=== PATIENT | female | born 1965 | race Two or more races ===

== ENCOUNTER 2017-06-23 11:26 | Emergency (ER) | payer OTHER ==
[2017-06-23] MEDS ORDERED: ASPIRIN CHEW 81 MG TABLET PO STA (11:55)
[2017-06-23] MEDS ORDERED: cloNIDine 0.1 MG TABLET PO STA (11:55)
[2017-06-23] MEDS ORDERED: cloNIDine 0.1 MG TABLET ONE (12:05)
[2017-06-23] MEDS ORDERED: ASPIRIN CHEW 81 MG TABLET ONE (12:06)
[2017-06-23 12:08] LABS: BASOPHILS % (AUTO) 0.2 %; EOSINOPHILS % (AUTO) 0.1 %; HCT - HEMATOCRIT 39.9 % (37.0-47.0); HGB - HEMOGLOBIN 13.7 g/dL (12.0-16.0); LYMPHOCYTES # (AUTO) 1.5 10^3/uL (1.5-3.5); LYMPHOCYTES % (AUTO) 12.6 %; MEAN CORPUSCULAR HEMOGLOBIN 29.4 pg (27.0-31.0); MEAN CORPUSCULAR HGB CONC 34.3 g/dL (32.0-36.0); MEAN CORPUSCULAR VOLUME 85.6 fL (81.0-99.0); MONOCYTES # (AUTO) 0.6 10^3/uL (0.0-1.0); MONOCYTES % (AUTO) 4.8 %; NEUTROPHILS # (AUTO) 9.7 10^3/uL (1.5-6.6); NEUTROPHILS % (AUTO) 82.3 %; NUCLEATED RED BLOOD CELLS AUTO 0.1 /100WBC; RED BLOOD COUNT 4.66 10^6/uL (4.20-5.40); RED CELL DISTRIBUTION WIDTH 13.6 % (12.0-15.0); UNCORRECTED WHITE BLOOD COUNT 11.8 x10^3/uL; WHITE BLOOD COUNT 11.8 x10^3/uL (4.8-10.8)
[2017-06-23 12:13] LABS: CALCIUM 8.9 mg/dL (8.5-10.3); POTASSIUM 2.8 mmol/L (3.5-5.0)
[2017-06-23 12:18] LABS: INR 1.1 (0.8-1.2); PT - PROTHROMBIN TIME 12.9 secs (9.9-12.6)
[2017-06-23] MEDS ORDERED: IOPAMIDOL-300 100 ML VIAL ONE (12:23)
[2017-06-23 12:25] LABS: PARTIAL THROMBOPLASTIN TIME 25.7 secs (24.9-33.3)
--- NOTE | 2017-06-23 12:37 | XRAY Preliminary Report ---
Exam: XR CHEST 2 VIEW PA/LAT IMPRESSION: Technically suboptimal examination. No radiographically apparent acute abnormality in the chest. [facility] SITE ID: [id number]
--- NOTE | 2017-06-23 12:40 | XRAY Report ---
EXAM: CHEST RADIOGRAPHY EXAM DATE: 06/23/2017 12:29 PM. CLINICAL HISTORY: Tachycardia and short of breath . COMPARISON: None. TECHNIQUE: 2 views. FINDINGS: Lungs/Pleura: Technically suboptimal examination secondary to underpenetration and grid artifact on t he frontal view. No focal consolidation is evident. No large pneumothorax or pleural effusion. Mediastinum: Moderate enlargement of the cardiac silhouette. Possible thickening of the right paratra cheal stripe. Other: None. IMPRESSION: Technically suboptimal examination. No radiographically apparent acute abnormality in the chest. [facility] Referring Provider Line: [phone] SITE ID: [id number]
--- NOTE | 2017-06-23 13:05 | CT Preliminary Report ---
Exam: CT CHEST ANGIO (PE) IMPRESSION: 1. No evidence for pulmonary thromboemboli bilaterally. 2. Lower lung predominant hazy groundglass opacities likely reflect compressive atelectasis. No other airspace consolidation. 3. No pleural effusions. 4. No thoracic lymphadenopathy. [facility] SITE ID: [id number]
--- NOTE | 2017-06-23 13:08 | CT Report ---
EXAM: CT ANGIOGRAM CHEST EXAM DATE: 06/23/2017 12:31 PM. CLINICAL HISTORY: Tachy and SOB. COMPARISON: None. TECHNIQUE: Routine helical imaging was performed through the chest in the pulmonary arterial phase. I V Contrast: 80 cc [id number]. Reconstructions: Coronal 3-D MIP reconstructions.Sagittal and coronal. In accordance with CT protocol optimization, one or more of the following dose reduction techniques w ere utilized for this exam: automated exposure control, adjustment of mA and/or KV based on patient s ize, or use of iterative reconstructive technique. FINDINGS: Pulmonary Arteries: Diagnostic quality: Adequate through the segmental arteries. No evidence for acute or chronic pulmona ry emboli. RV/LV is within normal limits. There is no interventricular septal bowing. There is no reflux of cont rast material in the IVC. Lungs/Pleura: Hazy lower lung prominent groundglass opacities could reflect compressive atelectasis. No other focal consolidation. No evidence of pleural effusions or pneumothorax. Mediastinum: 7 mm right thyroid nodule. No enlarged mediastinal or hilar lymph nodes are seen. Normal heart size. Trace pericardial fluid. Thoracic Aorta: Unremarkable. Upper Abdomen: Hepatic steatosis evident. Other: None. IMPRESSION: 1. No evidence for pulmonary thromboemboli bilaterally. 2. Lower lung predominant hazy groundglass opacities likely reflect compressive atelectasis. No other airspace consolidation. 3. No pleural effusions. 4. No thoracic lymphadenopathy. [facility] Referring Provider Line: [phone] SITE ID: [id number]
[2017-06-23] MEDS ORDERED: IOPAMIDOL-300 100 ML VIAL IVP ONE (13:26)
[2017-06-23 13:39] LABS: BILIRUBIN,URINE NEGATIVE (NEGATIVE)
[2017-06-23 13:40] LABS: UA w/ MICROSCOPIC CHARGE YES
[2017-06-23 13:46] LABS: UR CULTURE IF IND NOT INDICATED; WBC,URINE 0-3 /HPF (0-5)
--- NOTE | 2017-06-23 16:22 | ED Physician Documentation ---
History of Present Illness - Stated complaint Stated Complaint: WEAKNESS - Chief complaint Chief Complaint: Neuro - History obtained from History obtained from: Patient (pt states that she woke up this AM and said that she could not get out of bed. she states that when she did she could not stand and fell down on her bottom. She states that she then was able to stand and went into the bathroom when she had the symptoms again and sat down. She then improved. she states that she was able to drive to her providers office and was able to walk in but was not seen there. She then drove to the ER and as she was standing on the curb by her car she slipped and fell and could not get up. some others had to help her up. at the time of my eval she reported no symptoms. pt also reports that hs is not short of breath and has "white coat syndrome" and has been told that her heart rate is always elevated.) Review of Systems Constitutional: denies: Fever, Chills Cardiac: denies: Chest pain / pressure, Palpitations Respiratory: denies: Dyspnea, Cough, Hemoptysis GI: denies: Abdominal Pain, Nausea, Vomiting, Constipation, Diarrhea : denies: Dysuria, Frequency Skin: denies: Rash, Lesions Musculoskeletal: denies: Neck pain, Back pain, Extremity pain, Joint swelling, Pain with weight bearing Neurologic: reports: Generalized weakness. denies: Difficulty speaking, Near syncope, Syncope, Confused, Altered mental status, Headache, Head injury, LOC PD PAST MEDICAL HISTORY - Past Medical History Past Medical History: No - Past Surgical History Past Surgical History: No - Present Medications Home Medications: Ambulatory Orders Medication Instructions Recorded Confirmed Lisinopril 10 mg PO DAILY #30 tablet 06/23/17 - Allergies Allergies/Adverse Reactions: Allergies Allergy/AdvReac Type Severity Reaction Status Date / Time No Known Drug Allergies Allergy Verified 06/23/17 11:36 - Social History Does the pt smoke?: No Smoking Status: Never smoker Does the pt drink ETOH?: Yes ETOH Use: Wine Does the pt have substance abuse?: No - POLST Patient has POLST: No PD ED PE NORMAL - Vitals Vital signs reviewed: Yes - General General: Alert and oriented X 3, No acute distress, Well developed/nourished - HEENT HEENT: Atraumatic, Moist mucous membranes - Cardiac Cardiac: RRR, No murmur - Respiratory Respiratory: No respiratory distress, Clear bilaterally - Abdomen Abdomen: Normal bowel sounds, Soft, Non tender, Non distended - Back Back: No CVA TTP - Derm Derm: Normal color, Warm and dry, No rash - Extremities Extremities: No deformity, No tenderness to palpate, No edema - Neuro Neuro: Alert and oriented X 3, 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 No: Confused, Disoriented , Weakness, Abnormal sensation, Nystagmus, Aphasia, Dysarthria Results - Vitals Vitals: Vital Signs - 24 hr 06/23/17 06/23/17 06/23/17 11:32 11:45 12:00 Temperature 37.2 C Heart Rate 130 H 108 H 111 H Respiratory 24 20 20 Rate Blood Pressure 263/118 H 259/120 H 229/108 H O2 Saturation 98 98 97 06/23/17 06/23/17 06/23/17 12:30 12:50 13:15 Temperature Heart Rate 112 H 108 H 108 H Respiratory 20 20 20 Rate Blood Pressure 226/119 H 253/124 H 226/124 H O2 Saturation 97 98 96 06/23/17 06/23/17 06/23/17 13:48 14:00 14:27 Temperature Heart Rate 108 H 96 98 Respiratory 20 20 20 Rate Blood Pressure 222/133 H 233/108 H 218/110 H O2 Saturation 98 97 96 06/23/17 06/23/17 15:00 15:45 Temperature Heart Rate 110 H 104 H Respiratory 20 18 Rate Blood Pressure 226/92 H 241/110 H O2 Saturation 95 100 Oxygen O2 Source Room air - EKG (time done) 1134 Rate: Rate (enter#) Rhythm: Sinus tachycardia Parthenon: LAD Intervals: Normal OH QRS: Normal Ischemia: Normal ST segments - Labs Labs: Laboratory Tests 06/23/17 06/23/17 06/23/17 11:45 11:45 11:45 WBC 11.8 H RBC 4.66 Hgb 13.7 Hct 39.9 MCV 85.6 MCH 29.4 MCHC 34.3 RDW 13.6 Plt Count 222 MPV 8.0 Neut # 9.7 H Lymph # 1.5 Edmunds # 0.6 Eos # 0.0 Baso # 0.0 Absolute Nucleated RBC 0.01 Nucleated RBC % 0.1 PT 12.9 H INR 1.1 APTT 25.7 Sodium 137 Potassium 2.8 L Chloride 101 Carbon Dioxide 22 Anion Gap 14.0 H BUN 15 Creatinine 1.0 Estimated GFR (MDRD) 58 L Glucose 120 H Calcium 8.9 Troponin I B-Natriuretic Peptide Urine Color Urine Clarity Urine pH Ur Specific Ethel Urine Protein Urine Glucose (UA) Urine Ketones Urine Occult Blood Urine Nitrite Urine Bilirubin Urine Urobilinogen Ur Leukocyte Esterase Urine RBC Urine WBC Ur Squamous Epith Cells Urine Bacteria Urine Mucus Ur Microscopic Review Urine Culture Comments 06/23/17 06/23/17 06/23/17 11:45 11:45 13:30 WBC RBC Hgb Hct MCV MCH MCHC RDW Plt Count MPV Neut # Lymph # Edmunds # Eos # Baso # Absolute Nucleated RBC Nucleated RBC % PT INR APTT Sodium Potassium Chloride Carbon Dioxide Anion Gap BUN Creatinine Estimated GFR (MDRD) Glucose Calcium Troponin I 0.05 B-Natriuretic Peptide 230 H Urine Color YELLOW Urine Clarity CLEAR Urine pH 7.0 Ur Specific Ethel 1.010 Urine Protein TRACE Urine Glucose (UA) NEGATIVE Urine Ketones NEGATIVE Urine Occult Blood MODERATE H Urine Nitrite NEGATIVE Urine Bilirubin NEGATIVE Urine Urobilinogen 0.2 (NORMAL) Ur Leukocyte Esterase NEGATIVE Urine RBC 6-10 H Urine WBC 0-3 Ur Squamous Epith Cells FEW Squamous Urine Bacteria Few Urine Mucus Few Strands Ur Microscopic Review INDICATED Urine Culture Comments NOT INDICATED 06/23/17 14:50 WBC RBC Hgb Hct MCV MCH MCHC RDW Plt Count MPV Neut # Lymph # Edmunds # Eos # Baso # Absolute Nucleated RBC Nucleated RBC % PT INR APTT Sodium Potassium Chloride Carbon Dioxide Anion Gap BUN Creatinine Estimated GFR (MDRD) Glucose Calcium Troponin I 0.06 B-Natriuretic Peptide Urine Color Urine Clarity Urine pH Ur Specific Ethel Urine Protein Urine Glucose (UA) Urine Ketones Urine Occult Blood Urine Nitrite Urine Bilirubin Urine Urobilinogen Ur Leukocyte Esterase Urine RBC Urine WBC Ur Squamous Epith Cells Urine Bacteria Urine Mucus Ur Microscopic Review Urine Culture Comments - Rads (name of study) CXR Radiology: Final report received CTA Radiology: Final report received PD MEDICAL DECISION MAKING - ED course Complexity details: d/w patient ED course: pt with normal neuro exam in the ER and stood and ambulated W/O problems. her HR was elevated but She was < 100 at one point then went > 100 when I walked into the room. has been hypertensive since admission and I suspect that she is chronically hypertensive. No signs of CVA or DE or renal failure or CHF. discussed the HTN with the pt. she does not have a PCM. will start on a low dose of medication and she was instructed to call her insurance to find a PCm to discuss her HTN. she expressed understanding and was given return precautions. Departure - Departure Clinical Impression: Hypertension, Tachycardia, Weakness Condition: Good Instructions: Hypertension Control Follow-Up: primary, care provider [Other] Prescriptions: Lisinopril 10 mg PO DAILY #30 tablet Comments: Take your medications as instructed. Recommend that you take your blood pressure at home and record the results. You need to contact your insurance company to find a primary care provider because your blood pressure needs to be followed by a primary care provider. Return to the ER for any new or worsening symptoms.
[2017-06-23 17:05] VITALS: BP 241/118
== END 2017-06-23 16:55 | disposition home or self-care (01) ==
LOC: ED 11:26
DX: I10 Essential (primary) hypertension (principal); R00.0 Tachycardia, unspecified; R53.1 Weakness; Z91.81 History of falling
CPT/HCPCS: 36415; 71020; 71275; 80048; 81001; 83880; 84484; 85025; 85610; 85730; 93005; 99284; 99285; A9270; Q9967; 81003; 87086

== ENCOUNTER 2017-06-24 11:38 | Outpatient (CLI) | payer OTHER | END 2017-06-24 11:39 | disposition critical access hospital (66) | LOC: EMS 11:38 | PROVIDERS: ATTEND Surgery | DX: R53.1 Weakness (principal); W19.XXXA Unspecified fall, initial encounter; Y92.009 Unspecified place in unspecified non-institutional (private) residence as the place of occurrence of the external cause | CPT/HCPCS: A0425; A0427 ==

== ENCOUNTER 2017-06-24 12:15 | Emergency (ER) | payer OTHER ==
[2017-06-24 12:57] LABS: BASOPHILS % (AUTO) 0.2 %; EOSINOPHILS % (AUTO) 0.2 %; HCT - HEMATOCRIT 40.8 % (37.0-47.0); LYMPHOCYTES # (AUTO) 1.6 10^3/uL (1.5-3.5); LYMPHOCYTES % (AUTO) 9.9 %; MEAN CORPUSCULAR HGB CONC 34.3 g/dL (32.0-36.0); MEAN CORPUSCULAR VOLUME 84.6 fL (81.0-99.0); MEAN PLATELET VOLUME 8.1 fL (7.9-10.8); MONOCYTES # (AUTO) 1.1 10^3/uL (0.0-1.0); MONOCYTES % (AUTO) 6.5 %; NEUTROPHILS # (AUTO) 13.8 10^3/uL (1.5-6.6); NEUTROPHILS % (AUTO) 83.2 %; NUCLEATED RED BLOOD CELLS AUTO 0.1 /100WBC; RED BLOOD COUNT 4.82 10^6/uL (4.20-5.40); RED CELL DISTRIBUTION WIDTH 13.5 % (12.0-15.0); UNCORRECTED WHITE BLOOD COUNT 16.6 x10^3/uL; WHITE BLOOD COUNT 16.6 x10^3/uL (4.8-10.8)
[2017-06-24 13:03] LABS: BILIRUBIN,TOTAL 1.1 mg/dL (0.2-1.0); BUN - BLOOD UREA NITROGEN 16 mg/dL (6-20); CALCIUM 9.3 mg/dL (8.5-10.3); CARBON DIOXIDE - CO2 24 mmol/L (21-32); CHLORIDE 104 mmol/L (101-111); CREATININE 0.9 mg/dL (0.4-1.0); GFR - MDRD 65 (>89); GLUCOSE 110 mg/dL (70-100); INR 1.2 (0.8-1.2); LIPASE 19 U/L (22-51); PT - PROTHROMBIN TIME 13.2 secs (9.9-12.6); SODIUM 139 mmol/L (135-145); TOTAL PROTEIN 8.3 g/dL (6.7-8.2)
[2017-06-24 13:15] LABS: PARTIAL THROMBOPLASTIN TIME 25.1 secs (24.9-33.3)
--- NOTE | 2017-06-24 13:24 | CT Preliminary Report ---
Exam: CT HEAD W/O IMPRESSION: 1. No acute intracranial abnormality nor bleed. 2. Markedly abnormal supratentorial brain consistent with the history of chronic uncontrolled hyperte nsion. Please note that the full differential would include: Small vessel disease such as seen with d iabetes or hypertension, demyelinating process, vasculitis,CADASIL disease, drug use. Lack of atrophy indicates changes are unlikely significantly secondary to this lady's alcohol abuse, chronic encepha lopathy either acquired or on a congenital basis. Critical test called to Dr. Holden at 1320, 06/24/2017. [facility] SITE ID: [id number]
--- NOTE | 2017-06-24 13:41 | CT Report ---
EXAM: CT HEAD EXAM DATE: 06/24/2017 01:06 PM. CLINICAL HISTORY: Patient seen yesterday for shortness of breath and tachycardia. Patient presents no w with acute right sided weakness. COMPARISON: None. TECHNIQUE: Multiaxial CT images were obtained from the foramen magnum to the vertex. Reformats: Coron al. IV contrast: None. In accordance with CT protocol optimization, one or more of the following dose reduction techniques w ere utilized for this exam: automated exposure control, adjustment of mA and/or KV based on patient s ize, or use of iterative reconstructive technique. FINDINGS: Parenchyma: No intra-axial blood products. Numerous 6 mm and smaller old vascular insults not only involving the lenticular nuclei, left anterio r frontal centrum semiovale, but also the right thalamus. Marked amount of nonspecific uniform supratentorial white matter low density extending to the sharply marginated armendariz-white matter interface. Posterior fossa is unremarkable. Extraaxial Spaces: No cerebral atrophy. No subdural or epidural collections identified. Ventricles: Normal in size and position. Sinuses and Orbits: Imaged paranasal sinuses, orbits, and mastoids show no significant abnormality. Bones: No evidence of fracture or calvarial defect. Other: None. IMPRESSION: 1. No acute intracranial abnormality nor bleed. 2. Markedly abnormal supratentorial brain consistent with the history of chronic uncontrolled hyperte nsion. Please note that the full differential would include: Small vessel disease such as seen with d iabetes or hypertension, demyelinating process, vasculitis,CADASIL disease, drug use. Lack of atrophy indicates changes are unlikely significantly secondary to this lady's alcohol abuse, chronic encepha lopathy either acquired or on a congenital(mitochndrial) basis. Critical test called to Dr. Holden at 1320, 06/24/2017. [facility] Referring Provider Line: [phone] SITE ID: [id number]
[2017-06-24] MEDS ORDERED: ASPIRIN CHEW 81 MG TABLET PO STA (16:20)
[2017-06-24] MEDS ORDERED: cloNIDine 0.1 MG TABLET PO STA (16:25)
[2017-06-24] MEDS ORDERED: ASPIRIN CHEW 81 MG TABLET ONE (17:00)
[2017-06-24] MEDS ORDERED: cloNIDine 0.1 MG TABLET ONE (17:09)
[2017-06-24 17:38] VITALS: BP 237/120
--- NOTE | 2017-06-24 19:18 | ED Physician Documentation ---
History of Present Illness - Stated complaint Stated Complaint: WEAKNESS - Chief complaint Chief Complaint: Neuro - History obtained from History obtained from: Patient (pt states that she woke up at 0200 this AM with weakness in her right arm and right leg. she staes that she was able at some point to stand and then did have a fall and hit her head. no LOC. pt ended up calling EMS at approx 1100 to come in to the hospital She was seen yesterday by me for LE weakness and HTN and was sent home because she was asymptomatic in the ER. pt stated that she woke with the right arm weakness. stated at the time of my exam her right leg weakness had improved somewhat.) Review of Systems Constitutional: denies: Fever, Chills Eyes: denies: Loss of vision, Decreased vision, Photophobia, Discharge Nose: denies: Congestion, Sinus pressure / pain Throat: denies: Sore throat Cardiac: denies: Chest pain / pressure, Palpitations, Pedal edema Respiratory: denies: Dyspnea, Cough GI: denies: Abdominal Pain, Nausea, Vomiting, Constipation, Diarrhea : denies: Dysuria, Frequency Skin: denies: Rash, Lesions Musculoskeletal: denies: Neck pain, Back pain, Extremity pain, Joint swelling Neurologic: reports: Focal weakness (right arm and right leg), Numbness ( tingling in right arm), Head injury (right side of head from the fall). denies : Difficulty speaking, Syncope, Confused, Altered mental status, Headache, LOC PD PAST MEDICAL HISTORY - Past Medical History Past Medical History: No - Past Surgical History Past Surgical History: No - Present Medications Home Medications: Ambulatory Orders Medication Instructions Recorded Confirmed Lisinopril 10 mg PO DAILY #30 tablet 06/23/17 06/24/17 - Allergies Allergies/Adverse Reactions: Allergies Allergy/AdvReac Type Severity Reaction Status Date / Time No Known Drug Allergies Allergy Verified 06/24/17 12:24 - Social History Does the pt smoke?: No Smoking Status: Never smoker Does the pt drink ETOH?: Yes Does the pt have substance abuse?: No - POLST Patient has POLST: No PD ED PE NORMAL - Vitals Vital signs reviewed: Yes - General General: Alert and oriented X 3, No acute distress, Well developed/nourished - HEENT HEENT: PERRL, EOMI, Ears normal, Pharynx benign. No: Atraumatic (contusion to the right frontal region ) - Neck Neck: Supple, no meningeal sign, No bony TTP - Cardiac Cardiac: RRR, Strong equal pulses (radial and DP ) - Respiratory Respiratory: No respiratory distress, Clear bilaterally - Abdomen Abdomen: Soft, Non tender - Derm Derm: Normal color, No rash - Extremities Extremities: No deformity, No tenderness to palpate, No edema, No calf tenderness / cord - Neuro Neuro: Alert and oriented X 3, tube dispatcher 2-12 intact, Normal speech Eye Opening: Spontaneous Motor: Obeys Commands Verbal: Oriented GCS Score: 15 - Psych Psych: Normal mood, Normal affect PD ED PE EXPANDED - Neuro Neuro: Alert and Oriented X 3, Normal Speech, Weakness, RUE, RLE, CNII-XII intact, PERRL, Normal speech. No: Confused, Disoriented, Obtunded, Unresponsive , Normal motor (weakness to the right UE), Abnormal sensation, LUE, LLE, CN deficit, Aphasia, Dysarthria Results - Vitals Vitals: Vital Signs - 24 hr 06/24/17 06/24/17 06/24/17 12:16 14:42 17:37 Temperature 36.8 C Heart Rate 100 102 H 110 H Respiratory 16 24 21 Rate Blood Pressure 240/141 H 229/109 H 237/120 H O2 Saturation 98 97 96 Oxygen O2 Source Room air - Labs Labs: Laboratory Tests 06/24/17 06/24/17 06/24/17 12:35 12:35 12:35 WBC 16.6 H RBC 4.82 Hgb 14.0 Hct 40.8 MCV 84.6 MCH 29.0 MCHC 34.3 RDW 13.5 Plt Count 234 MPV 8.1 Neut # 13.8 H Lymph # 1.6 [place] # 1.1 H Eos # 0.0 Baso # 0.0 Absolute Nucleated RBC 0.02 Nucleated RBC % 0.1 PT 13.2 H INR 1.2 APTT 25.1 Sodium 139 Potassium 3.0 L Chloride 104 Carbon Dioxide 24 Anion Gap 11.0 BUN 16 Creatinine 0.9 Estimated GFR (MDRD) 65 L Glucose 110 H Calcium 9.3 Total Bilirubin 1.1 H AST 45 H ALT 43 Alkaline Phosphatase 93 Ammonia Troponin I B-Natriuretic Peptide Total Protein 8.3 H Albumin 4.1 Globulin 4.2 Albumin/Globulin Ratio 1.0 Lipase 19 L Ethyl Alcohol < 5.0 06/24/17 06/24/17 06/24/17 12:35 12:35 13:24 WBC RBC Hgb Hct MCV MCH MCHC RDW Plt Count MPV Neut # Lymph # [place] # Eos # Baso # Absolute Nucleated RBC Nucleated RBC % PT INR APTT Sodium Potassium Chloride Carbon Dioxide Anion Gap BUN Creatinine Estimated GFR (MDRD) Glucose Calcium Total Bilirubin AST ALT Alkaline Phosphatase Ammonia 14.2 Troponin I 0.14 B-Natriuretic Peptide 284 H Total Protein Albumin Globulin Albumin/Globulin Ratio Lipase Ethyl Alcohol - Rads (name of study) Head CT Radiology: Final report received PD MEDICAL DECISION MAKING - ED course Complexity details: reviewed results, re-evaluated patient, considered differential, d/w patient, d/w family, d/w wound care center consultant ED course: Pt with HTN that is the same as yesterday. her last known normal was last night and she presented to the hospital approx 10 hours after she woke up and she reported improvement in her right leg weakness. She does not meet criteria for tpa. head CT neg for bleed but is concerning for other abnormalities most likely from her chronic HTN. discussed case with Dr Tamayo (neurology) who recommended giving ASA, treating HTN to a SBP of 220 and MRI wand W/o contrast and CT angio of head and neck he stated that the ultimate dispo was admission and we discussed that she probably needed transfer. He agreed. arthur organized the accepting provider ( Dr esperanza Rankin). pt was given ASA and clonidine which brought her HTN down to < 220. Pt was informed of the transfer and agreement. - Critical Care Time(min): 65 Time Includes: Direct patient care, Review records, Coordinate care, Medical consult, See progress note Data interpretation: Labs, Cardiac output, See progress note Procedures included in critical care time: See progress note Procedures excluded from critical care time: See progress note Departure - Departure Disposition: 02 Transfer Acute Care Hosp Clinical Impression: Hypertension, Arm weakness Condition: Stable
== END 2017-06-24 18:50 | disposition short-term general hospital (02) ==
LOC: EDUNIT# → ED 12:15
DX: I10 Essential (primary) hypertension (principal); M62.81 Muscle weakness (generalized); R00.0 Tachycardia, unspecified; I45.81 Long QT syndrome
CPT/HCPCS: 36415; 70450; 80053; 80320; 82140; 83690; 83880; 84484; 85025; 85610; 85730; 93005; 99285; 99291; A9270

== ENCOUNTER 2017-07-31 08:49 | Outpatient (CLI) | payer SELFPAY ==
[2017-07-31 18:01] LABS: BUN - BLOOD UREA NITROGEN 19 mg/dL (6-20); CALCIUM 9.2 mg/dL (8.5-10.3); CARBON DIOXIDE - CO2 26 mmol/L (21-32); CHLORIDE 103 mmol/L (101-111); CHOL/HDL RATIO 1.9 (<4.4); CHOLESTEROL 109 mg/dL; CREATININE 0.8 mg/dL (0.4-1.0); GFR - MDRD 75 (>89); GLUCOSE 96 mg/dL (70-100); HDL CHOLESTEROL 57 mg/dL; LDL CHOLESTEROL,CALCULATED 40 mg/dL; LDL/HDL RATIO 0.7 (<4.4); SODIUM 140 mmol/L (135-145); VLDL CHOLESTEROL 12 mg/dL
== END 2017-07-31 08:50 | disposition home or self-care (01) ==
LOC: LAB.F 08:49
PROVIDERS: ATTEND Internal Medicine
DX: I63.312 Cerebral infarction due to thrombosis of left middle cerebral artery (principal); I10 Essential (primary) hypertension; Z74.09 Other reduced mobility; E66.9 Obesity, unspecified; G81.90 Hemiplegia, unspecified affecting unspecified side; I63.9 Cerebral infarction, unspecified
CPT/HCPCS: 36415; 80048; 80061

== ENCOUNTER 2017-08-21 07:57 | Outpatient (CLI) | payer OTHER ==
[2017-08-21 18:23] LABS: BUN - BLOOD UREA NITROGEN 17 mg/dL (6-20); CALCIUM 9.1 mg/dL (8.5-10.3); CARBON DIOXIDE - CO2 25 mmol/L (21-32); CHLORIDE 104 mmol/L (101-111); CHOLESTEROL 108 mg/dL; CREATININE 0.9 mg/dL (0.4-1.0); GFR - MDRD 65 (>89); GLUCOSE 127 mg/dL (70-100); HDL CHOLESTEROL 55 mg/dL; LDL CHOLESTEROL,CALCULATED 40 mg/dL; LDL/HDL RATIO 0.7 (<4.4); SODIUM 137 mmol/L (135-145); VLDL CHOLESTEROL 13 mg/dL
== END 2017-08-21 07:58 | disposition home or self-care (01) ==
LOC: LAB.F 07:57
PROVIDERS: ATTEND Internal Medicine
DX: I63.312 Cerebral infarction due to thrombosis of left middle cerebral artery (principal); E78.5 Hyperlipidemia, unspecified; I10 Essential (primary) hypertension; Z74.09 Other reduced mobility; E66.9 Obesity, unspecified; G81.90 Hemiplegia, unspecified affecting unspecified side; I63.9 Cerebral infarction, unspecified
CPT/HCPCS: 36415; 80048; 80061; 83721

== ENCOUNTER 2017-11-10 08:38 | Outpatient (CLI) | payer OTHER ==
[2017-11-10 13:30] LABS: CREATININE 0.9 mg/dL (0.4-1.0)
== END 2017-11-10 08:39 | disposition home or self-care (01) ==
LOC: LAB.F 08:38
PROVIDERS: ATTEND Internal Medicine
DX: I63.312 Cerebral infarction due to thrombosis of left middle cerebral artery (principal); E78.5 Hyperlipidemia, unspecified; I10 Essential (primary) hypertension; G81.90 Hemiplegia, unspecified affecting unspecified side; E66.9 Obesity, unspecified; Z74.09 Other reduced mobility
CPT/HCPCS: 36415; 80048

== ENCOUNTER 2018-03-02 11:12 | Outpatient (CLI) | payer OTHER | END 2018-03-02 11:13 | disposition home or self-care (01) | LOC: SC 11:12 | PROVIDERS: ATTEND Internal Medicine Pulmonary Disease | DX: G47.30 Sleep apnea, unspecified (principal); G47.10 Hypersomnia, unspecified; R06.83 Snoring; G47.8 Other sleep disorders | CPT/HCPCS: 99203; 99212 ==

== ENCOUNTER 2018-03-25 08:39 | Outpatient (CLI) | payer OTHER ==
[2018-03-25 11:22] LABS: CREATININE 0.8 mg/dL (0.4-1.0)
== END 2018-03-25 08:40 | disposition home or self-care (01) ==
LOC: LAB.F 08:39
PROVIDERS: ATTEND Internal Medicine
DX: I63.312 Cerebral infarction due to thrombosis of left middle cerebral artery (principal); E78.5 Hyperlipidemia, unspecified; I10 Essential (primary) hypertension; Z74.09 Other reduced mobility; E66.9 Obesity, unspecified; G81.90 Hemiplegia, unspecified affecting unspecified side; G47.30 Sleep apnea, unspecified
CPT/HCPCS: 36415; 80048

== ENCOUNTER 2018-04-18 19:25 | Outpatient (CLI) | payer OTHER | END 2018-04-18 19:26 | disposition home or self-care (01) | LOC: SC 19:25 | PROVIDERS: ATTEND Internal Medicine Pulmonary Disease | DX: G47.33 Obstructive sleep apnea (adult) (pediatric) (principal); G47.61 Periodic limb movement disorder | CPT/HCPCS: 95810 ==

== ENCOUNTER 2018-05-03 08:30 | Outpatient (CLI) | payer OTHER ==
[2018-05-03 13:37] LABS: BUN - BLOOD UREA NITROGEN 22 mg/dL (6-20); CALCIUM 9.3 mg/dL (8.5-10.3); CARBON DIOXIDE - CO2 27 mmol/L (21-32); CHLORIDE 106 mmol/L (101-111); CHOL/HDL RATIO 2.2 (<4.4); CHOLESTEROL 126 mg/dL; CREATININE 0.6 mg/dL (0.4-1.0); GFR - MDRD 104 (>89); GLUCOSE 88 mg/dL (70-100); HDL CHOLESTEROL 58 mg/dL; LDL CHOLESTEROL,CALCULATED 57 mg/dL; SODIUM 141 mmol/L (135-145); VLDL CHOLESTEROL 11 mg/dL
== END 2018-05-03 08:31 | disposition home or self-care (01) ==
LOC: LAB.F 08:30
PROVIDERS: ATTEND Internal Medicine
DX: I63.312 Cerebral infarction due to thrombosis of left middle cerebral artery (principal); R05 Cough; E78.5 Hyperlipidemia, unspecified; I10 Essential (primary) hypertension; Z74.09 Other reduced mobility; E66.9 Obesity, unspecified; G81.90 Hemiplegia, unspecified affecting unspecified side; G47.30 Sleep apnea, unspecified
CPT/HCPCS: 36415; 80048; 80061; 83721

== ENCOUNTER 2018-05-04 11:07 | Outpatient (CLI) | payer OTHER | END 2018-05-04 11:08 | disposition home or self-care (01) | LOC: SC 11:07 | PROVIDERS: ATTEND Internal Medicine Pulmonary Disease | DX: G47.33 Obstructive sleep apnea (adult) (pediatric) (principal); I47.1 Supraventricular tachycardia | CPT/HCPCS: 99212; 99213 ==

== ENCOUNTER 2018-05-24 10:52 | Outpatient (CLI) | payer OTHER ==
--- NOTE | 2018-05-25 14:23 | Mammography Report ---
Reason: SCREENING MAMMO Procedure Date: 05/24/2018 Accession Number: [id number] / [id number] Procedure: [facility] - Screening Mammo w/Ulises CPT Code: FULL RESULT: EXAM: Screening Mammo w/Ulises DATE: 05/24/2018 11:23 AM CLINICAL HISTORY: Routine baseline. No reported personal or family history of breast cancer. TECHNIQUE: Bilateral CC and MLO views were obtained. Note: Patient is unable to raise her right arm which produces technical limitation of the right MLO view. Best possible images were obtained. COMPARISON: Baseline FINDINGS: The breasts demonstrate heterogeneously dense fibroglandular parenchyma bilaterally. Left breast: There is a circumscribed margin oval 16 mm mass in the medial central breast 3 cm from the nipple. There are no suspicious calcifications or areas of distortion. Right breast: There are no suspicious masses, calcifications or areas of distortion. IMPRESSION: Incomplete examination RECOMMENDATION: Left breast: 16 mm oval mass central breast. Targeted ultrasound is recommended. Right breast: Annual screening mammography. BI-RADS CATEGORY 0: Incomplete examination STANDARD QUALIFYING STATEMENTS: 1. This examination was not reviewed with the aid of Computer-Aided Detection (CAD). 2. A negative or benign imaging report should not preclude biopsy if clinically suspicious findings are present. 3. Dense breasts may obscure an underlying neoplasm. 4. This examination was reviewed with the aid of 3D breast imaging (tomosynthesis).
== END 2018-05-24 10:53 | disposition home or self-care (01) ==
LOC: DI 10:52
PROVIDERS: ATTEND Internal Medicine
DX: Z12.31 Encounter for screening mammogram for malignant neoplasm of breast (principal); R92.8 Other abnormal and inconclusive findings on diagnostic imaging of breast
CPT/HCPCS: 77063; 77067

== ENCOUNTER 2018-06-04 11:25 | Outpatient (CLI) | payer OTHER ==
--- NOTE | 2018-06-07 09:18 | Ultrasound Report ---
Reason: ABN MAMMO - LT SPEC VIEW ULTRASOUND Procedure Date: 06/04/2018 Accession Number: [id number] / [id number] Procedure: US - Breast Unilateral Limited CPT Code: FULL RESULT: EXAM: Breast Unilateral Limited DATE: 06/04/2018 1:10 PM CLINICAL HISTORY: 52-year-old patient recalled from screening mammogram findings of a 1.6 cm circumscribed oval mass in the medial central left breast 3 cm from the nipple. ? COMPARISON: Mammogram 05/24/2018. TECHNIQUE: Targeted ultrasound was performed of the left breast in the area of clinical concern at 11 o'clock and 4 cm distance from the nipple. ?Color Doppler was employed as appropriate. ? FINDINGS: A lobulated hypoechoic wider than tall 1.5 x 1.3 x 0.7 cm mass with partially ill-defined margins is identified. This mass warrants ultrasound-guided biopsy. The mass corresponds to the mammographic finding. IMPRESSION: Suspicious findings. RECOMMENDATION: Ultrasound-guided biopsy of a left breast mass, 11:00 position. A message has been left with the office of Dr. Roly Molina and the patient has been informed of the exam findings, counseled, and provided with a preliminary appointment for ultrasound-guided breast biopsy dated June 15. BIRADS CATEGORY 4 [facility]
== END 2018-06-04 11:26 | disposition home or self-care (01) ==
LOC: DI 11:25
PROVIDERS: ATTEND Internal Medicine
DX: N63.22 Unspecified lump in the left breast, upper inner quadrant (principal)
CPT/HCPCS: 76642

== ENCOUNTER 2018-06-15 11:14 | Outpatient (CLI) | payer OTHER ==
[2018-06-15] MEDS ORDERED: BUPIVACAINE 0.5%-EPI 1:200000 PF 10 ML VIAL SUBQ ONE (14:58)
[2018-06-15] MEDS ORDERED: BUFFERED LIDOCAINE 10 ML SYRINGE IU ONE (14:58)
--- NOTE | 2018-06-16 15:58 | Ultrasound Report ---
Reason: ABN MAMMO - LT BREAST NODULE Procedure Date: 06/15/2018 Accession Number: [id number] / [id number] Procedure: US - Biopsy Breast Core CPT Code: FULL RESULT: PROCEDURE: Ultrasound-guided needle biopsy left breast mass. CLINICAL DATA: Targeted mass measuring 1.3 x 1.1 x 0.7 with irregular margins in the 11 o'clock axis of the left breast. Informed consent was obtained. Using standard aseptic technique, both 1% buffered lidocaine and Sensorcaine were injected into the left breast for local anesthesia. A small magali was made in the skin with a #11 blade. A 12-gauge EasySize vacuum-assisted device was used to obtain 4 specimens. A specialized biopsy marker clip was placed into the biopsy cavity under ultrasound guidance. The patient was taken to separate mammography machine and a two-view digital mammography was performed to verify the clip placement and any complications. The mammography showed concordant clip placement. The wound was dressed and ice applied. The patient was observed for approximately 15 minutes, then was discharged from diagnostic imaging Department in good condition following instructions on wound care and obtaining biopsy results. The patient is scheduled to receive the biopsy results from the referring physician. The tissue was sent for histologic analysis. IMPRESSION: Ultrasound-guided biopsy of the left breast. AN ADDENDUM WILL BE MADE TO THIS REPORT WHEN PATHOLOGY IS REVIEWED TO ESTABLISH CONCORDANCE.
== END 2018-06-15 11:15 | disposition home or self-care (01) ==
LOC: DI 11:14
PROVIDERS: ATTEND Internal Medicine
DX: D24.2 Benign neoplasm of left breast (principal)
CPT/HCPCS: 19083

== ENCOUNTER 2018-09-13 10:53 | Outpatient (CLI) | payer OTHER | END 2018-09-13 10:54 | disposition home or self-care (01) | LOC: SC 10:53 | PROVIDERS: ATTEND Nurse Practitioner Family | DX: G47.33 Obstructive sleep apnea (adult) (pediatric) (principal) | CPT/HCPCS: 99212; 99214 ==

== ENCOUNTER 2018-10-28 15:52 | Outpatient (CLI) | payer OTHER ==
[2018-10-28 16:14] LABS: BASOPHILS % (AUTO) 0.5 %; EOSINOPHILS # (AUTO) 0.2 10^3/uL (0.0-0.7); EOSINOPHILS % (AUTO) 2.4 %; HGB - HEMOGLOBIN 13.5 g/dL (12.0-16.0); LYMPHOCYTES # (AUTO) 2.2 10^3/uL (1.5-3.5); LYMPHOCYTES % (AUTO) 30.3 %; MEAN CORPUSCULAR HEMOGLOBIN 29.6 pg (27.0-31.0); MEAN CORPUSCULAR HGB CONC 33.5 g/dL (32.0-36.0); MEAN CORPUSCULAR VOLUME 88.5 fL (81.0-99.0); MEAN PLATELET VOLUME 8.2 fL (7.9-10.8); MONOCYTES # (AUTO) 0.5 10^3/uL (0.0-1.0); MONOCYTES % (AUTO) 7.4 %; NEUTROPHILS # (AUTO) 4.3 10^3/uL (1.5-6.6); NEUTROPHILS % (AUTO) 59.4 %; PLT - PLATELET COUNT 235 10^3/uL (130-450); RED BLOOD COUNT 4.54 10^6/uL (4.20-5.40); RED CELL DISTRIBUTION WIDTH 13.1 % (12.0-15.0); WHITE BLOOD COUNT 7.2 x10^3/uL (4.8-10.8)
[2018-10-28 16:41] LABS: ALBUMIN 4.2 g/dL (3.2-5.5); BILIRUBIN,TOTAL 0.7 mg/dL (0.2-1.0); CALCIUM 9.3 mg/dL (8.5-10.3); CREATININE 0.8 mg/dL (0.4-1.0); TOTAL PROTEIN 8.4 g/dL (6.7-8.2)
== END 2018-10-28 15:53 | disposition home or self-care (01) ==
LOC: LAB 15:52
PROVIDERS: ATTEND Internal Medicine Gastroenterology
DX: I10 Essential (primary) hypertension (principal)
CPT/HCPCS: 36415; 80053; 85025

== ENCOUNTER 2018-11-11 06:35 | Day surgery (SDC) | payer OTHER ==
[2018-11-11] MEDS ORDERED: LACTATED RINGERS 1,000 ML IV ONE (06:40)
[2018-11-11] MEDS ORDERED: fentaNYL 250 MCG/5 ML VIAL IVP ONE (08:14)
[2018-11-11] MEDS ORDERED: MIDAZOLAM 2 MG/2 ML VIAL IVP ONE (08:14)
[2018-11-11 09:02] VITALS: BP 113/48
== END 2018-11-11 06:36 | disposition home or self-care (01) ==
LOC: SDS 06:35
PROVIDERS: ATTEND Internal Medicine Gastroenterology
PROC: 0DJD8ZZ Inspection of Lower Intestinal Tract, Via Natural or Artificial Opening Endoscopic (ICD-10-PCS; principal; 2018-11-11 08:00)
DX: Z12.11 Encounter for screening for malignant neoplasm of colon (principal); I10 Essential (primary) hypertension; G47.30 Sleep apnea, unspecified; E66.9 Obesity, unspecified; Z68.36 Body mass index [BMI] 36.0-36.9, adult; Z86.73 Personal history of transient ischemic attack (TIA), and cerebral infarction without residual deficits; E78.5 Hyperlipidemia, unspecified
CPT/HCPCS: 45378; J3010; J7120

== ENCOUNTER 2019-04-28 08:52 | Outpatient (CLI) | payer OTHER ==
[2019-04-28 17:42] LABS: BUN - BLOOD UREA NITROGEN 20 mg/dL (6-20); CALCIUM 9.2 mg/dL (8.5-10.3); CARBON DIOXIDE - CO2 28 mmol/L (21-32); CHLORIDE 106 mmol/L (101-111); CHOL/HDL RATIO 1.9 (<4.4); CHOLESTEROL 116 mg/dL; CREATININE 0.8 mg/dL (0.4-1.0); GFR - MDRD 74 (>89); GLUCOSE 98 mg/dL (70-100); HDL CHOLESTEROL 60 mg/dL; LDL CHOLESTEROL,CALCULATED 46 mg/dL; LDL/HDL RATIO 0.8 (<4.4); SODIUM 140 mmol/L (135-145); VLDL CHOLESTEROL 10 mg/dL
[2019-04-29 11:14] LABS: HEPATITIS C ANTIBODY NON-REACTIVE (NON-REACTIVE)
== END 2019-04-28 08:53 | disposition home or self-care (01) ==
LOC: LAB.S 08:52
PROVIDERS: ATTEND Internal Medicine
DX: I63.312 Cerebral infarction due to thrombosis of left middle cerebral artery (principal); E78.5 Hyperlipidemia, unspecified; I10 Essential (primary) hypertension; Z74.09 Other reduced mobility; E66.9 Obesity, unspecified; G81.90 Hemiplegia, unspecified affecting unspecified side; Z12.4 Encounter for screening for malignant neoplasm of cervix; Z12.11 Encounter for screening for malignant neoplasm of colon; Z11.59 Encounter for screening for other viral diseases; G47.30 Sleep apnea, unspecified
CPT/HCPCS: 36415; 80048; 80061; 83721; 86803

== ENCOUNTER 2019-06-15 13:17 | Outpatient (CLI) | payer OTHER ==
[2019-06-15 14:06] VITALS: BP 142/80
--- NOTE | 2019-06-15 14:06 | SLEEP CARE CONSULTATION ---
Information from patient questionnaire entered by Hannah Esparza. I have reviewed and concur with the information entered by Hannah Esparza. This document represents the service I personally performed and the decisions made by me, Nallely Barnard, RN, MSN, DYE OPERATOR. History of Present Illness Previous diagnosis: Severe, Obstructive Sleep Apnea-Hypopnea Syndrome AHI: 39.1 Reason for follow up: other (9 month) Equipment type: CPAP Equipment obtained from: [employer] Mask style: Nasal (Dreamwear) Mask brand: Respironics Backup mask available: Yes Last cushion change: 2 weeks ago CPAP Compliance Data - Data Reviewed with Patient Average duration of nightly device use: 8.25 Compliance rate %: 99 (180 days) Current pressure setting (cmH2O): 8-12 Humidity settin Average residual AHI: 0.9 Average large leak: zero Subjective Patient concerns: denies: aerophagia, mask discomfort, air blowing in eyes, mask leak noise, condensation in mask/hose, nasal congestion, dry mouth, nose, throat, epistaxis Observed to snore while using device: No Current pressure setting perceived as: comfortable On therapy, patient: reports: sleeping better, awakening more refreshed, being more awake and alert during the day, more rested overall. denies: drowsiness while driving (uses para transit or is driven by step father- does not drive) Initial [place] Sleepiness Scale score: 7 Current [place] Sleepiness Scale score: 9 Allergies and Home Medications Known drug allergies: No Home medication list reviewed: Yes Allergy and home medication list: Amlodipine Besylate 10mg tab one daily Atorvastatin Calcium 80mg tab one daily Losartan Potassium 100mg tab one daily Aspirin 325mg tanb one daily Review of Systems Review of systems same as previous: Yes Physical Exam Blood Pressure: 142/80 Cuff size: long Heart Rate: 80 O2 Saturation: 98 Weight: 212 lb 3.2 oz Weight change since last visit: gained 7 pounds Impression and Plan 1. Obstructive Sleep Apnea-Hypopnea Syndrome, severe, with excellent treatment compliance and good apnea control. On CPAP therapy, the patient has better sleep quality and is more rested overall. She is planning on continuing treatment. No problems with getting supplies or cleaning equipment. Since barak has gained some weight and is using the top range of her autoCPAP pressure, she was advised to lose weightl as continued weight gain could increase her apnea and CPAP pressure requirements as well as health risks. Generally diet modification of smaller portions and reducing refined foods will assist weight gain. If needed she can discuss a diet consult with PCP. Symptoms to report for pressure adjustment discussed. Patient's apnea severity and rationale for treatment to reduce apnea, improve sleep quality and reduce cardiovascular and cerebrovascular events was reviewed. I also reviewed the benefit of consistent device use of CPAP for her hypertension, and cerebrovascular disease. Thus it was emphasized to contact this office if any problem with using her CPAP. She agreed with plan. * Continue CPAP pressure at 8-12 cmH2O * Notify me if snoring with mask or feeling that the pressure is too much or too little * Attempt to lose weight * Return for follow up in 1 year, or sooner if concerns arise . I spent 100% of this 20 minute visit face to face with the patient with greater than 50% of this was spent time counseling the patient and coordination of care.
== END 2019-06-15 13:18 | disposition home or self-care (01) ==
LOC: SC 13:17
PROVIDERS: ATTEND Nurse Practitioner Family
DX: G47.33 Obstructive sleep apnea (adult) (pediatric) (principal)
CPT/HCPCS: 99212; 99213

== ENCOUNTER 2020-05-30 08:17 | Outpatient (CLI) | payer MEDICARE ==
[2020-05-30 14:51] LABS: BUN - BLOOD UREA NITROGEN 26 mg/dL (6-20); CALCIUM 9.2 mg/dL (8.5-10.3); CARBON DIOXIDE - CO2 26 mmol/L (21-32); CHLORIDE 106 mmol/L (101-111); CHOLESTEROL 119 mg/dL; CREATININE 0.7 mg/dL (0.4-1.0); GLUCOSE 92 mg/dL (70-100); HDL CHOLESTEROL 59 mg/dL; LDL CHOLESTEROL,CALCULATED 50 mg/dL; LDL/HDL RATIO 0.8 (<4.4); SODIUM 140 mmol/L (135-145); VLDL CHOLESTEROL 10 mg/dL
== END 2020-05-30 08:18 | disposition home or self-care (01) ==
LOC: LAB.S 08:17
PROVIDERS: ATTEND Internal Medicine
DX: Z00.00 Encounter for general adult medical examination without abnormal findings (principal); I10 Essential (primary) hypertension; E78.5 Hyperlipidemia, unspecified; I63.312 Cerebral infarction due to thrombosis of left middle cerebral artery; R87.810 Cervical high risk human papillomavirus (HPV) DNA test positive; R05 Cough; D24.2 Benign neoplasm of left breast; Z74.09 Other reduced mobility; E66.9 Obesity, unspecified; G81.90 Hemiplegia, unspecified affecting unspecified side; Z12.4 Encounter for screening for malignant neoplasm of cervix; G47.30 Sleep apnea, unspecified; Z12.11 Encounter for screening for malignant neoplasm of colon; I47.1 Supraventricular tachycardia
CPT/HCPCS: 36415; 80048; 80061; 83721

== ENCOUNTER 2020-06-15 11:37 | Outpatient (CLI) | payer MEDICARE ==
--- NOTE | 2020-06-15 10:57 | SLEEP CARE CONSULTATION ---
Information from patient questionnaire entered by Hannah Esparza. I have reviewed and concur with the information entered by Hannah Esparza. This document represents the service I personally performed and the decisions made by me, Nallely Barnard, RN, MSN, SHOT BLAST EQUIPMENT OPERATOR. History of Present Illness Service Date and Time: 06/15/2020 1030 Previous diagnosis: Severe, Obstructive Sleep Apnea-Hypopnea Syndrome AHI: 39.1 (in 2018) Reason for follow up: annual (last seen 06/2019) Equipment type: CPAP Equipment obtained from: [employer] (getting supplies as needed) Mask style: Nasal Mask brand: Respironics (Dreamwear) Backup mask available: Yes (old mask) Last cushion change: 4 months ago Prior sleep studies: Yes Year and Where: 2018 - [facility] Type of Sleep Study: Polysomnography CPAP Compliance Data - Data Reviewed with Patient Average duration of nightly device use: 7 hr 56 min Compliance rate %: 99 (180 days) Current pressure setting (cmH2O): 8-12 Humidity settin Average residual AHI: 0.6 Subjective Patient concerns: reports: other (reports mask portion sitting on cheek feels a bit warm. Denies sweating. Uses cloth barriers supplies with mask. ). denies: aerophagia, mask discomfort, air blowing in eyes, mask leak noise, nasal congestion, dry mouth, nose, throat, epistaxis Observed to snore while using device: No Current pressure setting perceived as: comfortable On therapy, patient: reports: sleeping better, awakening more refreshed, being more awake and alert during the day, more rested overall. denies: drowsiness while driving (uses transit or step father for transportation) Initial [place] Sleepiness Scale score: 7 (in 2018) Allergies and Home Medications Known drug allergies: No Home medication list reviewed: Yes (no changes ) Review of Systems Review of systems same as previous: Yes (no changes ) Physical Exam Height: 5 ft 4 in Weight: 212 lb Body Mass Index: 36.3 BMI Classification: Obese Impression and Plan 1. Obstructive Sleep Apnea-Hypopnea Syndrome, severe, with good treatment compliance and good apnea control. On CPAP therapy, the patient has better sleep quality and is more rested overall. For her complaint of the mask tube feelign warm where it sits on her cheek despite cloth barriers, I advised her to adjust the humidity and heated hose on her CPAP. She is unsure how to adjust so advised she can call [employer] or go to [employer] site online for a utube instruction video. Patient has maintained weight. Currently patients BMI is 36.3 obesity class . I discussed how obesity affects the risk of apnea, CPAP pressure requirements and overall health risks especially cardiovascular and diabetes. Thus patient is advised to lose weight. Weight loss can be done with reducing portion size, reducing refined foods and balancing content with vegetables, fruit and protein. A diet consultation can be helpful in achieving optimal weight loss goals. Patient encouraged to discuss their weight loss goals with their PCP and consider a referral to a director internal audit. The patient's CPAP pressure range should accommodate some weight loss. Symptoms to report for additional pressure adjustment discussed. Patient's apnea severity and rationale for treatment to reduce apnea, improve sleep quality and reduce cardiovascular and cerebrovascular events was reviewed. Since patient has more severe apnea in supine position, patient advised to avoid supine sleep with pillow positioning if unable to use CPAP while ill or if without electricity to reduce apnea risk. * Continue auto CPAP pressure at 8-12 cmH2O * Adjust humidity and heated hose * Notify me if snoring with mask or feeling that the pressure is too much or too little * Attempt to lose weight * Call this office if any problems using CPAP * Return for follow up in 1 year, or sooner if concerns arise Counseling Topics: Weight loss health impact, Discuss weight with PCP Visit Type: Telehealth Video Video Type: Doximity Patient Location: Home Location of Provider: Office Patient agrees to have their insurance billed: Yes Time Spent with Patient (minutes): 17 Provider Statement: I spent 100% of the Telehealth Video Call with the patient with greater than 50% spent counseling the patient and coordination of care.
== END 2020-06-15 11:38 | disposition home or self-care (01) ==
LOC: SC 11:37
PROVIDERS: ATTEND Nurse Practitioner Family
DX: G47.33 Obstructive sleep apnea (adult) (pediatric) (principal); E66.9 Obesity, unspecified; Z68.36 Body mass index [BMI] 36.0-36.9, adult

== ENCOUNTER 2020-10-22 14:40 | Outpatient (CLI) | payer MEDICARE ==
--- NOTE | 2020-10-23 12:25 | Mammography Report ---
BILATERAL DIGITAL SCREENING MAMMOGRAM 3D/2D: 10/22/2020 CLINICAL: Routine screening. Comparison is made to exams dated: 06/15/2018 mammogram, 06/15/2018 ultrasound biopsy, and 06/04/2018 ultrasound - [facility]. There are scattered fibroglandular elements in both breas ts. There is a benign mass in the left breast. There also is a biopsy clip in the left breast. No significant masses, calcifications, or other findings are seen in either breast. There has been no significant interval change. IMPRESSION: BENIGN There is no mammographic evidence of malignancy. A 1 year screening mammogram is recommended. This exam was interpreted at Station ID: [id number]. NOTE: For mammograms, a report in lay terms will be sent to the patient. Approximately 15% of breast malignancies will not be visualized mammographically. In the management of a palpable breast mass, a negative mammogram must not discourage biopsy of a clinically suspicious lesion. Electronically Signed By: Tony [email or web address]/yu:10/22/2020 16:29:56 ACR BI-RADS Category 2: Benign Finding(s) 3342F PARENCHYMAL PATTERN: (A) - The breast(s) demonstrate(s) scattered fibroglandular densities. BI-RADS CATEGORY: (2) - 2 RECOMMENDATION: (ANNUAL) - Recommend routine annual screening mammography. [id number] 1 year screening LATERALITY: (B)
== END 2020-10-22 14:41 | disposition home or self-care (01) ==
LOC: DI.S 14:40
PROVIDERS: ATTEND Obstetrics & Gynecology
DX: Z12.31 Encounter for screening mammogram for malignant neoplasm of breast (principal)

== ENCOUNTER 2021-06-04 10:10 | Outpatient (CLI) | payer MEDICARE ==
[2021-06-04 16:10] LABS: BUN - BLOOD UREA NITROGEN 20 mg/dL (6-20); CALCIUM 9.2 mg/dL (8.5-10.3); CARBON DIOXIDE - CO2 28 mmol/L (21-32); CHLORIDE 104 mmol/L (101-111); CHOL/HDL RATIO 1.9 (<4.4); CHOLESTEROL 113 mg/dL; CREATININE 0.7 mg/dL (0.4-1.0); GFR - MDRD 86 (>89); GLUCOSE 106 mg/dL (70-100); HDL CHOLESTEROL 59 mg/dL; LDL CHOLESTEROL,CALCULATED 40 mg/dL; LDL/HDL RATIO 0.7 (<4.4); POTASSIUM 3.5 mmol/L (3.5-5.0); SODIUM 140 mmol/L (135-145); TRIGLYCERIDES 71 mg/dL; VLDL CHOLESTEROL 14 mg/dL
[2021-06-04 20:11] LABS: ESTIMATED AVERAGE GLUCOSE 97 mg/dL (70-100)
[2021-06-05 14:40] LABS: HIV AG/AB 4TH GEN NON-REACTIVE (NON-REACTIVE)
== END 2021-06-04 10:11 | disposition home or self-care (01) ==
LOC: LAB.S 10:10
PROVIDERS: ATTEND Internal Medicine
DX: E78.5 Hyperlipidemia, unspecified (principal); I10 Essential (primary) hypertension; Z13.1 Encounter for screening for diabetes mellitus; Z11.4 Encounter for screening for human immunodeficiency virus [HIV]
CPT/HCPCS: 36415; 80048; 80061; 83036; G0475; 83721; 87389

== ENCOUNTER → 2022-01-06 | Outpatient (CLI) | payer MEDICARE | END | disposition short-term general hospital (02) | LOC: EMS 17:51 | DX: M25.551 Pain in right hip (principal); W18.39XA Other fall on same level, initial encounter; Y92.008 Other place in unspecified non-institutional (private) residence as the place of occurrence of the external cause | CPT/HCPCS: A0425; A0427 ==

== ENCOUNTER 2022-04-10 11:10 | Outpatient (CLI) | payer MEDICARE ==
[2022-04-10 14:57] LABS: BUN - BLOOD UREA NITROGEN 20 mg/dL (6-20); CALCIUM 9.2 mg/dL (8.5-10.3); CARBON DIOXIDE - CO2 28 mmol/L (21-32); CHLORIDE 103 mmol/L (101-111); CHOL/HDL RATIO 1.8 (<4.4); CHOLESTEROL 137 mg/dL; CREATININE 0.7 mg/dL (0.4-1.0); GFR - MDRD 86 (>89); GLUCOSE 86 mg/dL (70-100); HDL CHOLESTEROL 77 mg/dL; LDL CHOLESTEROL,CALCULATED 51 mg/dL; LDL/HDL RATIO 0.7 (<4.4); POTASSIUM 3.5 mmol/L (3.5-5.0); SODIUM 137 mmol/L (135-145); TRIGLYCERIDES 46 mg/dL; VLDL CHOLESTEROL 9 mg/dL
[2022-04-10 20:51] LABS: ESTIMATED AVERAGE GLUCOSE 88 mg/dL (70-100); HEMOGLOBIN A1c% 4.7 % (4.27-6.07)
== END 2022-04-10 11:11 | disposition home or self-care (01) ==
LOC: LAB.S 11:10
PROVIDERS: ATTEND Internal Medicine
DX: I10 Essential (primary) hypertension (principal); R54 Age-related physical debility; E78.5 Hyperlipidemia, unspecified; E66.9 Obesity, unspecified; Z13.1 Encounter for screening for diabetes mellitus
CPT/HCPCS: 36415; 80048; 80061; 82306; 83036; 83721

== ENCOUNTER 2022-04-24 08:00 | Outpatient (CLI) | payer MEDICARE ==
[2022-04-24 22:23] LABS: BACTERIAL VAGINOSIS DNA NEGATIVE (NEGATIVE); CANDIDA GLABRATA DNA NEGATIVE (NEGATIVE); CANDIDA GROUP DNA NEGATIVE (NEGATIVE); CANDIDA KRUSEI DNA NEGATIVE (NEGATIVE); TRICHOMONAS VAGINALIS DNA NEGATIVE (NEGATIVE)
== END 2022-04-24 23:59 | disposition home or self-care (01) ==
LOC: LAB.WC 08:00
PROVIDERS: ATTEND Nurse Practitioner
DX: N89.8 Other specified noninflammatory disorders of vagina (principal)
CPT/HCPCS: 81514

== ENCOUNTER 2022-04-30 09:44 | Outpatient (CLI) | payer MEDICARE ==
--- NOTE | 2022-04-30 11:37 | DEXA Report ---
PROCEDURE: Dexa Spine and/or Hip INDICATIONS: FRAILTY TECHNIQUE: Dual energy x-ray absorptiometry (DXA) was performed on a [employer] System. Regions measur ed are the AP Spine, femoral neck, and if needed forearm. COMPARISON: None FINDINGS: Lumbar Spine: Bone Mineral Density 1.02 g/cm/cm,T score -1.3, Left Hip: Bone Mineral Density 0.88 g/cm/cm,T score -1, Left Femoral Neck: Bone Mineral Density 0.86 g/cm/cm, T score -1.3, (T score greater or equal to -1.0: NORMAL) (T score from -1.1 to -2.4: OSTEOPENIA) (T score less than or equal to -2.5 to: OSTEOPOROSIS) Impression: Osteopenia of the lumbar spine and left femoral neck. Patients with diagnosis of osteoporosis or osteopenia should have regular bone mineral density assess ment. For those eligible for Medicare, routine testing is allowed once every 2 years. Testing frequ ency can be increased for patients who have rapidly progressing disease or for those who are receivin g medical therapy to restore bone mass. Reviewed by: Scot Caruso MD on 04/30/2022 11:36 AM PDT Approved by: Scot Caruso MD on 04/30/2022 11:36 AM PDT Station ID: [id number]
== END 2022-04-30 09:45 | disposition home or self-care (01) ==
LOC: DI 09:44
PROVIDERS: ATTEND Internal Medicine
DX: R54 Age-related physical debility (principal); M85.89 Other specified disorders of bone density and structure, multiple sites

== ENCOUNTER 2022-05-07 13:09 | Outpatient (CLI) | payer MEDICARE ==
--- NOTE | 2022-05-08 12:53 | Mammography Report ---
BILATERAL DIGITAL SCREENING MAMMOGRAM 3D/2D: 05/07/2022 CLINICAL: Routine screening. Comparison is made to exams dated: 10/22/2020 mammogram, 06/15/2018 mammogram, 06/15/2018 ultrasound bi opsy, and 06/04/2018 ultrasound - [facility]. There are scattered areas of fibroglandular density in both breasts (category b / 25%-50% glandular t issue). There is a benign mass in the left breast. There also is a biopsy clip in the left breast. No significant masses, calcifications, or other findings are seen in either breast. There has been no significant interval change. IMPRESSION: BENIGN There is no mammographic evidence of malignancy. A 1 year screening mammogram is recommended. Based on the Tyrer Cuzick model (a risk assessment model) the patients lifetime risk is 8.7% and her 10 year risk is 3.2%. According to the ACR, ACS, and NCCN guidelines, an annual breast MRI exam antelmo g with mammogram is recommended if the patients lifetime risk is 20% or greater. This exam was interpreted at Station ID: [id number]. NOTE: For mammograms, a report in lay terms will be sent to the patient. Approximately 15% of breast malignancies will not be visualized mammographically. In the management of a palpable breast mass, a negative mammogram must not discourage biopsy of a clinically suspicious lesion. Electronically Signed By: Mook Horn M.D., jr/yu:05/07/2022 16:41:20 ACR BI-RADS Category 2: Benign Finding(s) 3342F PARENCHYMAL PATTERN: (A) - The breast(s) demonstrate(s) scattered fibroglandular densities. BI-RADS CATEGORY: (2) - 2 RECOMMENDATION: (ANNUAL) - Recommend routine annual screening mammography. [id number] 1 year screening LATERALITY: (B)
== END 2022-05-07 13:10 | disposition home or self-care (01) ==
LOC: DI.S 13:09
PROVIDERS: ATTEND Nurse Practitioner
DX: Z12.31 Encounter for screening mammogram for malignant neoplasm of breast (principal)